=== PATIENT | male | born 1995 | race African-American/Black ===

== ENCOUNTER 2017-08-24 01:39 | Inpatient (IN) | payer OTHER ==
[~2017-08-24] VITALS: Ht 177.8 cm; Wt 74.8 kg
--- NOTE | ~2017-08-24 | EEG ---
Formerly [facility] [place] [address] ELECTROENCEPHALOGRAM Name: DARRIUS PENN Room #: 429-P DIS IN M.R.#: [id number] Admission: 08/24/17 Attend Phys: Raghav Johnston MD Discharge: 08/25/17 Date of : 89 Report #: [id number] THIS REPORT FOR: //name// CC: NICOLASA physician/PCP Patricia Garcia DATE OF SERVICE: 08/24/2017 This patient is being evaluated for the possibility of seizure. EEG was done by placing the electrodes by standard 10-20 system of electrode placement. Both referential and sequential montages were used for recording. Background activity in this patient's EEG is about 8 Hz and 15 microvolt. It is a symmetrical activity. The patient went to sleep that is associated with bilaterally symmetrical sleep spindle and vertex sharp waves. Photic stimulation is unremarkable. Throughout the record, no active epileptiform activity was noticed. IMPRESSION: This patient's EEG is unremarkable. Thank you very much for this referral. <ELECTRONICALLY SIGNED> By: Dawit Garcia MD 08/26/17 0719 [id number] Dawit Garcia MD /nt
--- NOTE | ~2017-08-24 | HC ---
[facility] [place] [address] CONSULTATION Name: DARRIUS PENN Room #: 429-P [facility] IN M.R.#: [id number] Admission: 08/24/17 Attend Phys: Raghav Johnston MD Discharge: 08/25/17 Date of : [birth year] Report #: [id number] THIS REPORT FOR: //name// CC: NICOLASA physician/PCP Patricia Garcia DATE OF SERVICE: 08/24/2017 HISTORY OF PRESENT ILLNESS: This is a 22-year-old male patient who was admitted with possible for seizures. The patient was in a place where he had strobe light. Seizure lasted about 1 minute. There were tonic-clonic seizures. There was tongue biting. There was postictal period. He got some Ativan and got some Keppra and he is still sleepy, but he said he is feeling alright. REVIEW OF SYSTEMS: Indicate this patient has a history of what looks like Chiari malformation. They caused headaches and the mother had decompressive surgery done. This patient goes to school in [place]. He smokes. He has marijuana in his system. He indicates his alcohol intake is a pretty low, but he does drink alcohol. Otherwise, he is healthy and he indicated that this 14-point review of systems was unremarkable. PAST MEDICAL HISTORY: Negative for seizure. FAMILY HISTORY: Positive for headaches. SOCIAL HISTORY: Uses marijuana. PHYSICAL EXAMINATION: Indicates that he is sleepy, but he wakes up. When he wakes up, he follows command. He knows what month and what date it is. He believes his speech, memory and fund of knowledge is at his baseline. Cranial nerve examination 2-12 was unremarkable the best I carried out. His strength, sensation, reflexes are symmetrical, but he is drowsy and it is difficult to evaluate him. There is no meningeal sign in this patient. There is no papilledema. His cardiac examination is unremarkable. His respiratory examination is unremarkable. His blood pressure is 128/68, respiration is 16, pulse is 67, temperature is 98.2. LABORATORY DATA: His white count is 13.2 and that he does have a low MCV at 72.5. He does have some lactic acidosis at 5.8. He did have a CT scan of the head in the Emergency Room, which was unremarkable. IMPRESSION: 1. New onset seizure in relation to flashing light. 2. Increased white count, probably because of demargination or secondary to seizure. [facility] [address] [place] [address] CONSULTATION Name: DARRIUS PENN Room #: 429-P DIS IN M.R.#: [id number] Admission: 08/24/17 Attend Phys: Raghav Johnston MD Discharge: 08/25/17 Date of : [birth year] Report #: [id number] 3. Slightly decreased MCV of unknown etiology. 4. History of Chiari malformation in the family and because of that, we will do the MRI today, then tomorrow. RECOMMENDATIONS: 1. MRI of the brain with and without contrast. 2. EEG. 3. I discussed with him in detail MRI with and without contrast versus without contrast only. I discussed with him potential long-term side effects, which are possible. I discussed with him the alternative. I discussed with him an allergic reaction and a rare severe irreversible dermatological reaction. He understood all those and he wanted to proceed with it. I had a long talk with them. I told them he needs to take seizure precautions and he cannot drive for 6 months. I discussed with him the medication versus avoiding the strobe light to see if seizures occur or not occur again. I asked him to stop taking any street drugs and I talked to him that he can do to avoid another seizures. We will reassess the situation after the above was accomplished. More than 50 minutes of time was spent taking care of this patient today and majority of that time was spent counseling this patient and coordinating his care and reviewing his data. <ELECTRONICALLY SIGNED> By: Dawit Garcia MD 08/26/17 0721 [id number] Dawit Garcia MD /nt
[~2017-08-24 01:39] MED LIST: ULTRAM 50MG TAB50 MG PO
[2017-08-24 01:40] VITALS: BP 127/68
[2017-08-24 02:00] LABS: URINE BILIRUBIN NEGATIVE (Negative); URINE BLOOD 2+ (Negative); URINE CLARITY CLEAR; URINE GLUCOSE-RANDOM* NEGATIVE (Negative); URINE KETONES NEGATIVE (Negative); URINE LEUKOCYTES-REFLEX NEGATIVE (Negative); URINE NITRITE-REFLEX NEGATIVE (Negative); URINE PROTEIN (DIPSTICK) TRACE (Negative); URINE SPECIFIC GRAVITY 1.025 (1.005-1.035); URINE UROBILINOGEN 0.2 E.U./dl (0.2-1.0)
[2017-08-24 02:02] LABS: URINE COLOR STRAW
[2017-08-24 02:08] LABS: AMP/METHAMP Negative (Negative); BARBITURATES Negative (Negative); BENZODIAZEPINES Negative (Negative); COCAINE Negative (Negative); METHADONE Negative (Negative); OPIATES Negative (Negative); PCP Negative (Negative); SQUAMOUS None Seen /LPF (0-3); URINE RBC 0-2 Rare /HPF (0-2)
[2017-08-24 02:09] LABS: CASTS None Seen /LPF (None Seen); URINE WBC-REFLEX None Seen /HPF (0-5)
[2017-08-24 02:10] LABS: AMORPHOUS URATES Few /LPF (None Seen); BACTERIA-REFLEX None Seen /HPF (None Seen)
[2017-08-24 02:32] LABS: ABSOLUTE NEUTROPHILS 7.8 thou/uL (1.4-8.2); BASOPHILS 0.6 % (0.0-2.0); EOSINOPHILS 2.6 % (0.0-3.0); HEMATOCRIT 42.8 % (42.0-52.0); HEMOGLOBIN 12.8 gm/dL (14.0-18.0); LYMPHOCYTES 30.7 % (24.0-44.0); MCH 21.7 pg (26.0-34.0); MCHC 29.9 g/dL (28.0-37.0); MCV 72.5 fL (80.0-100.0); MONOCYTES 7.1 % (1.0-8.0); PLATELET COUNT 172 thou/uL (150-400); RDW 17.3 % (10.5-14.5); WBC 13.2 thou/uL (4.0-11.0)
[2017-08-24 02:47] LABS: CALCIUM 9.4 mg/dL (8.5-10.1); CREATININE 1.3 mg/dL (0.7-1.3); POTASSIUM 4.1 mmol/L (3.5-5.1)
[2017-08-24 02:53] LABS: MAGNESIUM 2.4 mg/dL (1.8-2.4); TOTAL BILIRUBIN 0.6 mg/dL (<0.1-1.0)
[2017-08-24 02:54] LABS: ALBUMIN 4.6 g/dL (3.4-5.0); TOTAL PROTEIN 8.4 g/dL (6.4-8.2)
[2017-08-24 03:23] VITALS: BP 104/48
[2017-08-24 03:42] VITALS: BP 121/74
[2017-08-24 04:22] LABS: ANISOCYTOSIS 1+; MICROCYTES SLIGHT
[2017-08-24 07:30] VITALS: BP 128/68
[2017-08-24 16:10] VITALS: BP 99/57
[2017-08-24 20:00] VITALS: BP 114/76
[2017-08-25 04:00] VITALS: BP 101/54
[2017-08-25 07:13] LABS: TSH 0.944 uIU/mL (0.358-3.740)
[2017-08-25 09:51] VITALS: BP 121/72
[2017-08-25] MEDS ORDERED: KEPPRA 500 MG500 M1 PO (14:43)
[2017-08-25 15:37] VITALS: BP 121/72
[2017-08-26 00:09] LABS: HAV IgM AB (ANTI-HAV IgM) Negative (Negative); HEPATITIS B SURFACE AG Negative (Negative); HEPATITIS C VIRUS AB 0.1 (0.0-0.9)
== END 2017-08-25 16:10 | disposition home or self-care (01) | DRG 101 ==
LOC: ER 01:39 → EROBS 03:03 → 4E 03:03 → ENTRNSPT 08-25 16:02 → 4E 08-25 16:10
PROVIDERS: Emergency Medicine; Nurse Practitioner Acute Care; Psychiatry & Neurology Neuromuscular Medicine
DX: R56.9 Unspecified convulsions (principal); E87.2 Acidosis; R74.0 Nonspecific elevation of levels of transaminase and lactic acid dehydrogenase [LDH]; Z88.0 Allergy status to penicillin
CPT/HCPCS: 10183